=== PATIENT | female | born 2000 | race Caucasian/White ===

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

== ENCOUNTER 2019-01-12 17:31 | Observation (INO) | payer BC ==
--- NOTE | 2019-01-12 18:57 | EDM.PDOCBH ---
ED HPI GENERAL MEDICAL PROBLEM - General Chief Complaint: Behavioral/Psych Stated Complaint: attempt suicide Time Seen by Provider: 01/12/19 17:45 Source of Information: Reports: Patient, Family History Limitations: Reports: No Limitations - History of Present Illness INITIAL COMMENTS - FREE TEXT/NARRATIVE: This is a healthy 18yo F here for recently ingesting 7 tablets of her lexapro. She has a history of depression and anxiety. She has been feeling depressed and had recently been in an argument with one of her closest friends. She has never done this before but has tried cutting. She has not been taking her lexapro regularly at all since she first started it. Father states that her effexor has improved her symptoms in the past. Patient does note that others have all noticed improvement of her depression on those meds but she denies herself noticing improvement. She felt a brief instance of wanting to harm herself. She has had prior thoughts of suicide but never has acted upon it. This recent episode she does feel remorse and states she would never do that to herself again. Patient states she feels tired but denies any other symptoms. She is tearful when discussing her recent events causing her to be suicidal. Patient states she has full support of her dad but that she is at odds with her step mom and is currently living with her grandparents. Patient denies any further thoughts of harming herself. Onset: Sudden Location: Reports: Generalized Improves with: Reports: None Worsens with: Reports: None Head Pain Score (Numeric/FACES): 10 - Related Data Allergies Allergy/AdvReac Type Severity Reaction Status Date / Time No Known Allergies Allergy Verified 01/12/19 17:44 Home Meds: Home Meds Escitalopram [Lexapro] 10 mg PO DAILY 01/12/19 [History] Social & Family History - Tobacco Use Smoking Status *Q: Current Every Day Smoker Years of Tobacco use: 1 Packs/Tins Daily: 0.2 Used Tobacco, but Quit: No Second Hand Smoke Exposure: Yes ED ROS GENERAL - Review of Systems Review Of Systems: ROS reveals no pertinent complaints other than HPI. ED EXAM, BEHAVIORAL HEALTH - Physical Exam Exam: See Below Exam Limited By: No Limitations General Appearance: Alert, WD/WN, No Apparent Distress Eye Exam: Bilateral Eye: EOMI, PERRL Ears: Normal External Exam Nose: Normal Inspection Throat/Mouth: Normal Inspection Head: Atraumatic, Normocephalic Neck: Normal Inspection, Supple, Non-Tender Respiratory/Chest: No Respiratory Distress, Lungs Clear, Normal Breath Sounds Cardiovascular: Normal Peripheral Pulses, Regular Rate, Rhythm, No Edema GI/Abdominal: Normal Bowel Sounds, Soft, Non-Tender Extremities: Normal Inspection Neurological: Alert, CN II-XII Intact, No Motor/Sensory Deficits, Oriented x 3 Psychiatric: Depressed Mood, Restless, Tearful Skin Exam: Warm, Dry, Intact COURSE, BEHAVIORAL HEALTH COMP - Course Vital Signs: Last Vital Signs Temp 36.3 C 01/12/19 19:27 Pulse 52 L 01/12/19 19:27 Resp 17 01/12/19 19:27 BP 139/73 01/12/19 19:27 Pulse Ox 96 01/12/19 19:27 Orders, Labs, Meds: Active Orders 24 hr Category Date Time Status EKG Documentation Completion [RC] ASDIRECTED Care 01/12/19 18:44 Active Laboratory Tests 01/12/19 01/12/19 Range/Units 18:30 18:30 WBC 6.4 (4.0-11.0) K/uL RBC 4.76 (3.80-5.80) M/uL Hgb 13.6 (11.5-16.5) g/dL Hct 41.5 (37.0-47.0) % MCV 87 (76-96) fL MCH 28.6 (27.0-32.0) pg MCHC 32.8 (31.0-35.0) g/dL RDW 15.4 (11.0-16.0) % Plt Count 207 (150-500) K/uL MPV 10.4 H (6.0-10.0) fL Neut % (Auto) 76.3 H (45.0-70.0) % Lymph % (Auto) 12.0 L (20.0-40.0) % [place] % (Auto) 9.2 (3.0-10.0) % Eos % (Auto) 2.2 (1.0-5.0) % Baso % (Auto) 0.3 (0.0-0.5) % Neut # (Auto) 4.88 (2.00-7.50) K/uL Lymph # (Auto) 0.77 L (1.50-4.00) K/uL [place] # (Auto) 0.59 (0.20-0.80) K/uL Eos # (Auto) 0.14 (0.04-0.40) K/uL Baso # (Auto) 0.02 (0.02-0.10) K/uL Sodium 139 (136-145) mmol/L Potassium 3.9 (3.5-5.1) mmol/L Chloride 103 (98-107) mmol/L Carbon Dioxide 27.0 (21.0-32.0) mmol/L Anion Gap 12.9 (5.0-15.0) mmol/L BUN 12 (8-26) mg/dL Creatinine 0.95 (0.55-1.02) mg/dL Est Cr Clr Drug Dosing 75.33 mL/min Estimated GFR (MDRD) > 60 (>60) MLS/MIN BUN/Creatinine Ratio 12.6 (6-25) Glucose 91 (74-100) mg/dL Calcium 8.9 (8.5-10.1) mg/dL Total Bilirubin 0.7 (0.0-1.0) mg/dL AST 23 (15-37) U/L ALT 25 (12-78) U/L Alkaline Phosphatase 87 (46-116) U/L Total Protein 9.3 H (6.4-8.2) g/dL Albumin 4.4 (3.4-5.0) g/dL Globulin 4.9 H (2.2-4.2) g/dL Albumin/Globulin Ratio 0.9 (0.8-2.0) Medications Discontinued Medications Generic Name Dose Route Start Last Admin Trade Name Freq PRN Reason Stop Dose Admin Sodium Chloride 1,000 mls @ 999 mls/hr 01/12/19 18:58 01/12/19 19:28 Normal Saline IV 01/12/19 19:58 999 mls/hr .BOLUS ONE Administration Ondansetron HCl 8 mg 01/12/19 19:06 01/12/19 19:29 Zofran IVPUSH 01/12/19 19:07 8 mg ONETIME ONE Administration Departure - Departure Time of Disposition: 18:50 Disposition: Refer to Observation Condition: Fair Clinical Impression: QT prolongation Medication overdose Qualifiers: Encounter type: initial encounter Injury intent: intentional self-harm Qualified Code(s): T50.902A - Poisoning by unspecified drugs, medicaments and biological substances, intentional self-harm, initial encounter - Discharge Information - Problem List & Annotations (1) Medication overdose SNOMED Code(s): 74693188 Code(s): T50.901A - POISONING BY UNSP DRUG/MEDS/BIOL SUBST, ACCIDENTAL, INIT Status: Acute Priority: High Qualifiers: Encounter type: initial encounter Injury intent: intentional self-harm Qualified Code(s): T50.902A - Poisoning by unspecified drugs, medicaments and biological substances, intentional self-harm, initial encounter (2) QT prolongation SNOMED Code(s): 958906487 Code(s): R94.31 - ABNORMAL ELECTROCARDIOGRAM [ECG] [EKG] Status: Acute Priority: High - Problem List Review Problem List Initiated/Reviewed/Updated: Yes - My Orders Last 24 Hours: My Active Orders 01/12/19 18:44 EKG Documentation Completion [RC] ASDIRECTED - Assessment/Plan Last 24 Hours: My Active Orders 01/12/19 18:44 EKG Documentation Completion [RC] ASDIRECTED Plan: Patient to be placed in telemetry and monitored for QT prolongation. Per poison control patient needs to be monitored for 6 hours and a repeat EKG needs to be done as well as a tylenol level. Patient placed in observation for monitoring and f/u EKG. Father present and Grandmother will replace dad when he has to go to work. Patient on with family member.
[2019-01-12] MEDS ORDERED: Sodium Chloride 0.9% 1,000 ML IV ONE (18:58)
[2019-01-12] MEDS ORDERED: Ondansetron 4 MG/2 ML SDV IVPUSH ONE (19:06)
--- NOTE | 2019-01-13 08:39 | PCM.DCSUM1 ---
Discharge Summary - Discharge Data Discharge Date: 01/12/19 Discharge Disposition: Home, Self-Care 01 Condition: Fair - Referral to Home Health Primary Care Physician: PCP None - Discharge Diagnosis/Problem(s) (1) Medication overdose SNOMED Code(s): 06962642 ICD Code: T50.901A - POISONING BY UNSP DRUG/MEDS/BIOL SUBST, ACCIDENTAL, INIT Status: Acute Priority: High Qualifiers: Encounter type: initial encounter Injury intent: intentional self-harm Qualified Code(s): T50.902A - Poisoning by unspecified drugs, medicaments and biological substances, intentional self-harm, initial encounter (2) QT prolongation SNOMED Code(s): 146768616 ICD Code: R94.31 - ABNORMAL ELECTROCARDIOGRAM [ECG] [EKG] Status: Acute Priority: High - Patient Instructions Diet: Usual Diet as Tolerated Activity: As Tolerated Driving: Do Not Drive Showering/Bathing: May Shower Other/Special Instructions: To follow up with Dr. Arnold on January 13 or January 16 in clinic. Must be under direct supervision of family members at all times prior to follow up. Call clinic tomorrow morning to schedule follow up appointment. Call with any questions. - Discharge Plan Home Medications: Home Meds Escitalopram [Lexapro] 10 mg PO DAILY 01/12/19 [History] Forms: ED Department Discharge Referrals: PCP,None [Primary Care Provider] - - Discharge Summary/Plan Comment DC Time >30 min.: No Discharge Summary/Plan Comment: Patient counseled extensively and discussed with family 1 on 12/10 care/ monitoring. Patient to be with someone at all times until f/u in clinic for further management. Patient verbally agrees to a suicide contract. Patient is very remorseful and states she would never do something like this again. F/u in clinic in 1-2 days. - Patient Data Vitals - Most Recent: Last Vital Signs Temp 36.3 C 01/12/19 19:27 Pulse 52 L 01/12/19 19:27 Resp 17 01/12/19 19:27 BP 139/73 01/12/19 19:27 Pulse Ox 96 01/12/19 19:27 Weight - Most Recent: 63.503 kg Lab Results - Last 24 hrs: Laboratory Results - last 24 hr 01/12/19 01/12/1919 Range/Units 18:30 18:30 21:00 WBC 6.4 (4.0-11.0) K/uL RBC 4.76 (3.80-5.80) M/uL Hgb 13.6 (11.5-16.5) g/dL Hct 41.5 (37.0-47.0) % MCV 87 (76-96) fL MCH 28.6 (27.0-32.0) pg MCHC 32.8 (31.0-35.0) g/dL RDW 15.4 (11.0-16.0) % Plt Count 207 (150-500) K/uL MPV 10.4 H (6.0-10.0) fL Neut % (Auto) 76.3 H (45.0-70.0) % Lymph % (Auto) 12.0 L (20.0-40.0) % [place] % (Auto) 9.2 (3.0-10.0) % Eos % (Auto) 2.2 (1.0-5.0) % Baso % (Auto) 0.3 (0.0-0.5) % Neut # (Auto) 4.88 (2.00-7.50) K/uL Lymph # (Auto) 0.77 L (1.50-4.00) K/uL [place] # (Auto) 0.59 (0.20-0.80) K/uL Eos # (Auto) 0.14 (0.04-0.40) K/uL Baso # (Auto) 0.02 (0.02-0.10) K/uL Sodium 139 (136-145) mmol/L Potassium 3.9 (3.5-5.1) mmol/L Chloride 103 (98-107) mmol/L Carbon Dioxide 27.0 (21.0-32.0) mmol/L Anion Gap 12.9 (5.0-15.0) mmol/L BUN 12 (8-26) mg/dL Creatinine 0.95 (0.55-1.02) mg/dL Est Cr Clr Drug Dosing 75.33 mL/min Estimated GFR (MDRD) > 60 (>60) MLS/MIN BUN/Creatinine Ratio 12.6 (6-25) Glucose 91 (74-100) mg/dL Calcium 8.9 (8.5-10.1) mg/dL Total Bilirubin 0.7 (0.0-1.0) mg/dL AST 23 (15-37) U/L ALT 25 (12-78) U/L Alkaline Phosphatase 87 (46-116) U/L Total Protein 9.3 H (6.4-8.2) g/dL Albumin 4.4 (3.4-5.0) g/dL Globulin 4.9 H (2.2-4.2) g/dL Albumin/Globulin Ratio 0.9 (0.8-2.0) Acetaminophen 0.0 ug/mL Med Orders - Current: Current Medications Discontinued Medications Sodium Chloride (Normal Saline) 1,000 mls @ 999 mls/hr IV .BOLUS ONE Stop: 01/12/19 19:58 Last Admin: 01/12/19 19:28 Dose: 999 mls/hr Ondansetron HCl (Zofran) 8 mg IVPUSH ONETIME ONE Stop: 01/12/19 19:07 Last Admin: 01/12/19 19:29 Dose: 8 mg
== END 2019-01-12 22:15 | disposition home or self-care (01) ==
LOC: LB.ED 17:31 → EEVIPCON 18:56 → LB.MS 18:56 → MERGE 18:56 → LB.MS 19:24 → UNDOADMOB 19:24 → UNDODISOB 22:15
PROVIDERS: ADMIT Family Medicine; ATTEND Family Medicine
DX: T43.222A Poisoning by selective serotonin reuptake inhibitors, intentional self-harm, initial encounter (principal); R94.31 Abnormal electrocardiogram [ECG] [EKG]; F17.200 Nicotine dependence, unspecified, uncomplicated; F41.9 Anxiety disorder, unspecified; F32.9 Major depressive disorder, single episode, unspecified; Z79.899 Other long term (current) drug therapy
CPT/HCPCS: 36415; 80053; 80329; 85025; 93005; 96361; 96374; 99285; G0378; J2405; J7030; G0480

== ENCOUNTER 2021-08-15 19:17 | Emergency (ER) | payer BC ==
[2021-08-15] MEDS ORDERED: Erythromycin Base 0.5% Ophth Oint 3.5 GM Tube ONE (20:00)
[2021-08-15] MEDS ORDERED: Ciprofloxacin 0.3% Ophth Soln 2.5 ML Bottle ONE (20:00)
== END 2021-08-15 20:16 | disposition home or self-care (01) ==
LOC: LB.ED 19:17
DX: T49.8X1A Poisoning by other topical agents, accidental (unintentional), initial encounter (principal); T26.62XA Corrosion of cornea and conjunctival sac, left eye, initial encounter; H10.212 Acute toxic conjunctivitis, left eye
CPT/HCPCS: 99283; A9270-GY

== ENCOUNTER 2023-02-26 21:45 | Emergency (ER) | payer BC, OTHER ==
[2023-02-26] MEDS ORDERED: predniSONE 20 MG Tab ONE ×2 (22:30→22:54)
[2023-02-26] MEDS ORDERED: diphenhydrAMINE 25 MG Cap ONE ×2 (22:30→22:48)
[2023-02-26] MEDS ORDERED: predniSONE 20 MG Tab PO SCH (22:30)
[2023-02-26] MEDS ORDERED: predniSONE 20 MG Tab PO ONE (23:00)
== END 2023-02-26 22:57 | disposition home or self-care (01) ==
LOC: LB.ED 21:45
DX: T78.3XXA Angioneurotic edema, initial encounter (principal); F17.210 Nicotine dependence, cigarettes, uncomplicated
CPT/HCPCS: 99283; A9270-GY; J7512

== ENCOUNTER 2023-03-21 10:42 | Emergency (ER) | payer OTHER ==
[2023-03-21] MEDS: Lidocaine 1% 5 ML VIAL INJECT ONE (11:10)
[2023-03-21] MEDS: Bacitracin Oint 1 GM U/D Packet TOP ONE (11:45)
[2023-03-21] MEDS: Diphtheria,Pertussis(Acell),Tetanus Vaccine 0.5 ML Syringe IM ONE (11:47)
[2023-03-21] MEDS ORDERED: Cephalexin 500 MG Cap ONE (11:50)
== END 2023-03-21 11:55 | disposition home or self-care (01) ==
LOC: LB.ED 10:42
DX: S81.011A Laceration without foreign body, right knee, initial encounter (principal); F17.210 Nicotine dependence, cigarettes, uncomplicated; X58.XXXA Exposure to other specified factors, initial encounter; Z23 Encounter for immunization
CPT/HCPCS: 12002; 90471; 90715; 99282; A9270

== ENCOUNTER 2023-04-06 02:38 | Emergency (ER) | payer OTHER ==
[2023-04-06] MEDS: Acetaminophen 500 MG Tab PO ONE (03:00)
[2023-04-06] MEDS ORDERED: Sodium Chloride 0.9% 10 ML Syringe FLUSH PRN (03:53)
[2023-04-06] MEDS: Sodium Chloride 0.9% 1,000 ML IV SCH (04:00)
[2023-04-06 04:12] LABS: HEMATOCRIT 38.8 % (37.0-47.0); HEMOGLOBIN 12.5 g/dL (11.5-16.5); MEAN CORPUSCULAR HEMOGLOBIN 27.4 pg (27.0-32.0); MEAN CORPUSCULAR HGB CONC 32.2 g/dL (31.0-35.0); MEAN PLATELET VOLUME 10.9 fL (6.0-10.0); RED BLOOD CELL COUNT 4.56 M/uL (3.80-5.80); RED CELL DISTRIBUTION WIDTH 16.7 % (11.0-16.0); WHITE BLOOD CELL COUNT,WBC 6.3 K/uL (4.0-11.0)
[2023-04-06 04:24] LABS: ANION GAP 14.3 mmol/L (5.0-15.0); BUN/CREATININE RATIO 14.3 (6-25); CALCIUM 8.1 mg/dL (8.5-10.1); CARBON DIOXIDE,CO2 23.5 mmol/L (21.0-32.0); CREATININE 0.77 mg/dL (0.55-1.02); EST CRCL DRUG DOSING (CG) 106.37 mL/min; POTASSIUM,K 3.8 mmol/L (3.5-5.1)
[2023-04-06 09:53] VITALS: BP 101/48; PULSE 80
== END 2023-04-06 09:34 | disposition home or self-care (01) ==
LOC: LB.ED 02:38
DX: O72.1 Other immediate postpartum hemorrhage (principal); S02.2XXA Fracture of nasal bones, initial encounter for closed fracture; S00.83XA Contusion of other part of head, initial encounter; F17.210 Nicotine dependence, cigarettes, uncomplicated; Y04.8XXA Assault by other bodily force, initial encounter
CPT/HCPCS: 36415; 70450; 70486; 80048; 80307; 85027; 96360; 96361; 99284-25; 99285; A9270-GY; J7030

== ENCOUNTER 2023-08-06 01:55 | Emergency (ER) | payer OTHER ==
[2023-08-06] MEDS: Ondansetron 4 MG/2 ML SDV IVPUSH ONE (02:10)
[2023-08-06] MEDS ORDERED: Sodium Chloride 0.9% 10 ML Syringe FLUSH PRN (02:24)
[2023-08-06 02:33] LABS: APPEARANCE,URINE CLEAR (CLEAR); BILIRUBIN,URINE NEGATIVE (NEGATIVE); COLOR,URINE YELLOW; GLUCOSE,URINE NEGATIVE (NEGATIVE); KETONES,URINE NEGATIVE (NEGATIVE); LEUKOCYTE ESTERASE,URINE NEGATIVE (NEGATIVE); NITRITE,URINE NEGATIVE (NEGATIVE); OCCULT BLOOD,URINE TRACE-INTACT (NEGATIVE); PROTEIN,URINE NEGATIVE (NEGATIVE); UROBILINOGEN,URINE 0.2 E.U./dL (0.2-1.0)
[2023-08-06 02:35] LABS: HEMATOCRIT 43.1 % (37.0-47.0); HEMOGLOBIN 14.5 g/dL (11.5-16.5); MEAN CORPUSCULAR HEMOGLOBIN 28.8 pg (27.0-32.0); MEAN CORPUSCULAR HGB CONC 33.6 g/dL (31.0-35.0); MEAN PLATELET VOLUME 10.5 fL (6.0-10.0); RED BLOOD CELL COUNT 5.04 M/uL (3.80-5.80); RED CELL DISTRIBUTION WIDTH 16.1 % (11.0-16.0); WHITE BLOOD CELL COUNT,WBC 4.9 K/uL (4.0-11.0)
[2023-08-06] MEDS: Ketorolac 30 MG/ML SDV IVPUSH ONE (02:35)
[2023-08-06 02:39] LABS: RBC,URINE 0-5 /HPF; SQUAMOUS EPITHELIAL CELLS,UR FEW /HPF; WBC,URINE NOT SEEN /HPF
[2023-08-06 02:45] LABS: A/G RATIO 1.1 (0.8-2.0); ALBUMIN 4.1 g/dL (3.4-5.0); ANION GAP 14.8 mmol/L (5.0-15.0); BILIRUBIN TOTAL 0.7 mg/dL (0.0-1.0); BUN/CREATININE RATIO 16.7 (6-25); CALCIUM 8.5 mg/dL (8.5-10.1); CARBON DIOXIDE,CO2 25.1 mmol/L (21.0-32.0); CREATININE 0.96 mg/dL (0.55-1.02); EST CRCL DRUG DOSING (CG) 84.59 mL/min; POTASSIUM,K 3.9 mmol/L (3.5-5.1); PROTEIN TOTAL,TP 7.8 g/dL (6.4-8.2)
[2023-08-06] MEDS ORDERED: Sulfamethoxazole/Trimethoprim 800-160 MG Tab ONE (03:14)
== END 2023-08-06 02:58 | disposition home or self-care (01) ==
LOC: LB.ED 01:55
DX: N30.90 Cystitis, unspecified without hematuria (principal)
CPT/HCPCS: 36415; 80053; 81001; 81025; 85027; 96374; 96375; 99284; J1885; J2405; A9270-GY

== ENCOUNTER 2023-10-26 01:54 | Emergency (ER) | payer OTHER ==
[2023-10-26 02:28] LABS: BASOPHILS ABSOLUTE AUTO 0.03 K/uL (0.02-0.10); BASOPHILS PERCENT AUTO 0.7 % (0.0-0.5); EOSINOPHILS ABSOLUTE AUTO 0.25 K/uL (0.04-0.40); EOSINOPHILS PERCENT AUTO 5.6 % (1.0-5.0); HEMATOCRIT 41.5 % (37.0-47.0); HEMOGLOBIN 13.7 g/dL (11.5-16.5); LYMPHOCYTES ABSOLUTE AUTO 0.97 K/uL (1.50-4.00); LYMPHOCYTES PERCENT AUTO 21.8 % (20.0-40.0); MEAN CORPUSCULAR VOLUME 88 fL (76-96); MEAN PLATELET VOLUME 9.8 fL (6.0-10.0); MONOCYTES ABSOLUTE AUTO 0.37 K/uL (0.20-0.80); MONOCYTES PERCENT AUTO 8.3 % (3.0-10.0); NEUTROPHILS ABSOLUTE AUTO 2.83 K/uL (2.00-7.50); NEUTROPHILS PERCENT AUTO 63.6 % (45.0-70.0); PLATELET COUNT,PLT 151 K/uL (150-500); RED BLOOD CELL COUNT 4.73 M/uL (3.80-5.80); RED CELL DISTRIBUTION WIDTH 15.9 % (11.0-16.0); WHITE BLOOD CELL COUNT,WBC 4.5 K/uL (4.0-11.0)
[2023-10-26 02:42] LABS: A/G RATIO 1.1 (0.8-2.0); ALANINE AMINOTRANSFERASE,ALT 25 U/L (12-78); ALKALINE PHOSPHATASE 137 U/L (46-116); ASPARTATE AMNIOTRANSFERASE,AST 40 U/L (15-37); BILIRUBIN TOTAL 0.7 mg/dL (0.0-1.0); BLOOD UREA NITROGEN,BUN 6 mg/dL (8-26); BUN/CREATININE RATIO 6.6 (6-25); CALCIUM 7.7 mg/dL (8.5-10.1); CARBON DIOXIDE,CO2 20.5 mmol/L (21.0-32.0); CHLORIDE,CL 107 mmol/L (98-107); CREATININE 0.91 mg/dL (0.55-1.02); ESTIMATED GFR 90 mL/min (>60); GLUCOSE RANDOM 98 mg/dL (74-100); MAGNESIUM 1.8 mg/dL (1.8-2.4); PROTEIN TOTAL,TP 7.5 g/dL (6.4-8.2); SODIUM,NA 145 mmol/L (136-145)
[2023-10-26 02:45] LABS: LACTIC ACID 3.3 mmol/L (0.4-2.0)
[2023-10-26 02:53] LABS: ANION GAP 20.4 mmol/L (5.0-15.0)
[2023-10-26 02:54] LABS: HCG QUALITATIVE,SERUM NEGATIVE (NEGATIVE); POTASSIUM,K 2.9 mmol/L (3.5-5.1)
[2023-10-26] MEDS ORDERED: Iopamidol 612 MG/ML 100 ML Bottle IV SCH (03:00)
[2023-10-26 03:08] LABS: APPEARANCE,URINE CLEAR (CLEAR); BILIRUBIN,URINE NEGATIVE (NEGATIVE); COLOR,URINE YELLOW; GLUCOSE,URINE NEGATIVE (NEGATIVE); KETONES,URINE NEGATIVE (NEGATIVE); LEUKOCYTE ESTERASE,URINE NEGATIVE (NEGATIVE); NITRITE,URINE NEGATIVE (NEGATIVE); OCCULT BLOOD,URINE MODERATE (NEGATIVE); PROTEIN,URINE >=300 mg/dL (NEGATIVE); UROBILINOGEN,URINE 0.2 E.U./dL (0.2-1.0)
[2023-10-26 03:11] LABS: AMPHETAMINES SCREEN, URINE NEGATIVE (NEGATIVE)
[2023-10-26 03:12] LABS: AMORPHOUS SEDIMENT,URINE FEW /HPF; BARBITURATE SCREEN,URINE NEGATIVE (NEGATIVE); BENZODIAZEPINES SCREEN,URINE NEGATIVE (NEGATIVE); METHADONE SCREEN, URINE NEGATIVE (NEGATIVE); METHAMPHETAMINES SCREEN, URINE NEGATIVE (NEGATIVE); OXYCODONE SCREEN,URINE NEGATIVE (NEGATIVE); SQUAMOUS EPITHELIAL CELLS,UR FEW /HPF; THC SCREEN,URINE 50 NG/ML POSITIVE (NEGATIVE); WBC,URINE 0-5 /HPF
[2023-10-26] MEDS: Lactated Ringers 1,000 ML IV SCH (03:22)
[2023-10-26] MEDS: POTASSIUM CHLORIDE RIDERS IV ONE (03:30)
[2023-10-26] MEDS: Potassium Chloride Riders 50 ML ONE (03:48)
[2023-10-26] MEDS: HYDROmorphone 2 MG/ML Syringe IVPUSH SCH (05:45)
[2023-10-26] MEDS: HYDROmorphone 2 MG/ML Syringe ONE (05:59)
[2023-10-27] MEDS: Sodium Chloride 0.9% 10 ML Syringe FLUSH ONE (11:48)
[2023-10-27] MEDS: Sodium Chloride 0.9% 100 ML IV ONE (11:48)
== END 2023-10-26 06:00 ==
LOC: LB.ED 01:54
DX: S81.012A Laceration without foreign body, left knee, initial encounter (principal); S81.011A Laceration without foreign body, right knee, initial encounter; M54.2 Cervicalgia; M54.6 Pain in thoracic spine; V89.2XXA Person injured in unspecified motor-vehicle accident, traffic, initial encounter
CPT/HCPCS: 36415; 51702; 70450; 71260; 72125; 74177; 80053; 80307; 81001; 83605; 83690; 83735; 84100; 84703; 85025; 86850; 86900; 86901; 96361; 96365; 96375; 99285; J1170; J3480; J7120

== ENCOUNTER 2023-10-28 17:53 | Emergency (ER) | payer OTHER ==
[2023-10-28] MEDS ORDERED: Gabapentin 300 MG Cap ONE ×2 (18:30→18:32)
[2023-10-28] MEDS ORDERED: Acetaminophen/oxyCODONE 325-5 MG Tab ONE (18:30)
[2023-10-28] MEDS: Gabapentin 300 MG Cap PO ONE (18:35)
== END 2023-10-28 18:44 | disposition home or self-care (01) ==
LOC: LB.ED 17:53
DX: M54.2 Cervicalgia (principal); M54.6 Pain in thoracic spine; F17.210 Nicotine dependence, cigarettes, uncomplicated; V89.2XXA Person injured in unspecified motor-vehicle accident, traffic, initial encounter
CPT/HCPCS: 99283; A9270-GY

== ENCOUNTER 2023-11-01 18:01 | Emergency (ER) | payer OTHER ==
[2023-11-01] MEDS ORDERED: Furosemide 20 MG Tab ONE (18:46)
[2023-11-01 18:53] LABS: HEMATOCRIT 37.8 % (37.0-47.0); HEMOGLOBIN 12.4 g/dL (11.5-16.5); MEAN CORPUSCULAR HEMOGLOBIN 29.5 pg (27.0-32.0); MEAN CORPUSCULAR HGB CONC 32.8 g/dL (31.0-35.0); MEAN PLATELET VOLUME 10.1 fL (6.0-10.0); RED BLOOD CELL COUNT 4.2 M/uL (3.80-5.80); RED CELL DISTRIBUTION WIDTH 16.2 % (11.0-16.0); WHITE BLOOD CELL COUNT,WBC 4.3 K/uL (4.0-11.0)
[2023-11-01] MEDS: Furosemide 20 MG Tab PO ONE (18:55)
[2023-11-01 19:14] LABS: A/G RATIO 1.1 (0.8-2.0); ALBUMIN 3.9 g/dL (3.4-5.0); ANION GAP 13.6 mmol/L (5.0-15.0); BILIRUBIN TOTAL 0.6 mg/dL (0.0-1.0); BUN/CREATININE RATIO 12.6 (6-25); CALCIUM 8.9 mg/dL (8.5-10.1); CARBON DIOXIDE,CO2 26.6 mmol/L (21.0-32.0); CREATININE 0.95 mg/dL (0.55-1.02); EST CRCL DRUG DOSING (CG) 85.48 mL/min; POTASSIUM,K 4.2 mmol/L (3.5-5.1); PROTEIN TOTAL,TP 7.6 g/dL (6.4-8.2)
== END 2023-11-01 19:35 | disposition home or self-care (01) ==
LOC: LB.ED 18:01
DX: E87.79 Other fluid overload (principal); F17.210 Nicotine dependence, cigarettes, uncomplicated; Z79.891 Long term (current) use of opiate analgesic; Z79.899 Other long term (current) drug therapy; Z79.82 Long term (current) use of aspirin
CPT/HCPCS: 36415; 80053; 85027; 85379; 99283; A9270

== ENCOUNTER 2024-12-03 19:00 | Emergency (ER) | payer OTHER | END 2024-12-03 20:20 | disposition home or self-care (01) | LOC: LB.ED 19:00 | DX: L08.9 Local infection of the skin and subcutaneous tissue, unspecified (principal); Z79.899 Other long term (current) drug therapy | CPT/HCPCS: 99283 ==